=== PATIENT | female | born 1970 | race Caucasian/White ===

== ENCOUNTER 2017-01-26 01:18 | Emergency (ER) | payer SELFPAY | END 2017-01-26 02:05 | disposition left against medical advice (07) | LOC: EMS 01:20 | DX: M79.672 Pain in left foot (principal); M79.671 Pain in right foot; F20.9 Schizophrenia, unspecified; F31.9 Bipolar disorder, unspecified | CPT/HCPCS: 99283 ==

== ENCOUNTER 2017-01-26 02:35 | Inpatient (IN) | payer MEDICAID ==
[~2017-01-26] VITALS: Ht 160 cm; Wt 64.4 kg
[2017-01-26 03:09] LABS: BASOPHILS % (AUTO) 0.3 % (0.0-2.0); EOSINOPHILS % (AUTO) 2.1 % (1.0-6.0); HEMATOCRIT 40.5 % (36-46); HEMOGLOBIN 13.4 g/dL (12.0-16.0); LYMPHOCYTES # (AUTO) 1.6 K/uL (1.0-4.8); LYMPHOCYTES % (AUTO) 13.2 % (22.0-44.0); MEAN CORPUSCULAR VOLUME 91 fL (80-100); MONOCYTES # (AUTO) 0.7 K/uL (0.1-1.0); MONOCYTES % (AUTO) 5.7 % (2.0-9.0); NEUTROPHILS # (AUTO) 9.3 K/uL (1.8-7.7); NEUTROPHILS % (AUTO) 78.7 % (40.0-70.0); PLATELET COUNT (AUTO) 338 K/uL (150-450); RED BLOOD CELL COUNT(AUTO) 4.46 MIL/uL (4.00-5.20); RED CELL DISTRIBUTION WIDTH 13.5 % (11.5-14.5); WHITE BLOOD COUNT (AUTO) 11.8 K/uL (4.5-11.0)
[2017-01-26 03:13] LABS: ANION GAP 9 mmol/L (8-16); CALCIUM, TOTAL 9.2 mg/dL (8.8-10.5); CARBON DIOXIDE 26 mmol/L (22-29); CHLORIDE 102 mmol/L (98-107); CREATININE 0.79 mg/dL (0.60-1.30); GLOMERULAR FILTR. RATE CALC > 60 mL/min (>60); POTASSIUM 3.6 mmol/L (3.5-5.1); SODIUM SERUM 137 mmol/L (136-145); UREA NITROGEN, BLOOD 11 mg/dL (7-18)
[2017-01-26 03:19] LABS: ALANINE AMINOTRANSFERASE 23 U/L (12-78); ALBUMIN 4.2 g/dL (3.4-5.0); ASPARTATE AMINOTRANSFERASE 24 U/L (15-37); BILIRUBIN,TOTAL 0.8 mg/dL (0.1-1.0); TOTAL PROTEIN, SERUM 8.1 g/dL (6.4-8.2)
[2017-01-26] MEDS ORDERED: ZOLPIDEM TARTRATE 10 MG TABLET PO PRN (10:30)
[2017-01-26 12:30] VITALS: BP 143/91
[2017-01-26 13:27] VITALS: BP 133/85
[2017-01-26] MEDS: ACETAMINOPHEN 325 MG TABLET PO PRN (13:29)
[2017-01-26] MEDS: BACITRACIN 28.4 GM OINTMENT TP SCH (16:11)
[2017-01-26 16:15] VITALS: BP 112/72
[2017-01-27 00:10] VITALS: BP 131/69
[2017-01-27] MEDS: ACETAMINOPHEN 325 MG TABLET PO PRN (00:13)
[2017-01-27] MEDS ORDERED: ONDANSETRON HCL 4 MG TABLET PO PRN (07:45)
[2017-01-27] MEDS ORDERED: BACITRACIN 28.4 GM OINTMENT TP PRN (07:45)
[2017-01-27] MEDS ORDERED: MAG HYDROX/AL HYDROX/SIMETH ES 30 ML SUSPENSION UDCUP PO PRN (07:45)
[2017-01-27] MEDS ORDERED: CloNIDine HCL 0.1 MG TABLET PO PRN (07:45)
[2017-01-27] MEDS ORDERED: ACETAMINOPHEN 325 MG TABLET PO PRN (07:45)
[2017-01-27] MEDS ORDERED: ALBUTEROL SULFATE HFA 90 MCG/PUFF 8 GM INHALER IH PRN (07:45)
[2017-01-27] MEDS ORDERED: MAGNESIUM HYDROXIDE SUSPENSION 30 ML UDCUP PO PRN (07:45)
[2017-01-27 08:24] VITALS: BP 122/80
[2017-01-27] MEDS: BACITRACIN 28.4 GM OINTMENT TP SCH ×2 (08:39→17:26)
[2017-01-27] MEDS ORDERED: LORazepam 2 MG/ML VIAL ONE (10:23)
[2017-01-27] MEDS ORDERED: HALOPERIDOL LACTATE 5 MG/ML VIAL ONE (10:24)
[2017-01-27] MEDS ORDERED: DiphenhydrAMINE HCL 50 MG/ML VIAL ONE (10:24)
[2017-01-27] MEDS ORDERED: DiphenhydrAMINE HCL 50 MG/ML VIAL IM ONE (10:30)
[2017-01-27] MEDS ORDERED: LORazepam 2 MG/ML VIAL IM ONE (10:30)
[2017-01-27] MEDS ORDERED: HALOPERIDOL LACTATE 5 MG/ML VIAL IM ONE (10:30)
[2017-01-27] MEDS: MAGNESIUM SULFATE 454 GM BOX TP SCH (12:21)
[2017-01-27] MEDS: TERBINAFINE HCL 1% 30 GM CREAM TP SCH (12:21)
[2017-01-27 16:15] VITALS: BP 98/72
[2017-01-27] MEDS: OLANZapine 5 MG TABLET PO SCH (21:00)
[2017-01-27] MEDS: DIVALPROEX SODIUM 500 MG DR TABLET PO SCH (21:00)
[2017-01-28 00:48] VITALS: BP 99/65
[2017-01-28] MEDS: BENZOCAINE/MENTHOL LOZENGE MM PRN (04:16)
[2017-01-28] MEDS: OLANZapine 5 MG TABLET PO SCH ×2 (08:29→21:00)
[2017-01-28] MEDS: TERBINAFINE HCL 1% 30 GM CREAM TP SCH (08:29)
[2017-01-28] MEDS: BACITRACIN 28.4 GM OINTMENT TP SCH ×2 (08:29→17:00)
[2017-01-28] MEDS: MAGNESIUM SULFATE 454 GM BOX TP SCH (08:29)
[2017-01-28] MEDS: DIVALPROEX SODIUM 500 MG DR TABLET PO SCH ×2 (08:29→21:00)
[2017-01-28 08:31] LABS: HEMOGLOBIN A1C 5.4 % (4.5-6.2)
[2017-01-28 08:38] VITALS: BP 130/62
[2017-01-28 08:38] LABS: CHOL/HDL RATIO 3.3 (3.9-5.7); THYROID STIMULATING HORMONE 1.6 uIU/mL (0.36-3.74)
[2017-01-28 16:24] VITALS: BP 111/76
[2017-01-28] MEDS ORDERED: NICOTINE 14 MG/24 HOUR PATCH TD SCH (19:30)
[2017-01-28 20:35] VITALS: BP 115/74
[2017-01-28] MEDS: IBUPROFEN 600 MG TABLET PO PRN (20:35)
[2017-01-28] MEDS: LORazepam 2 MG TABLET PO PRN (23:47)
[2017-01-28 23:48] VITALS: BP 131/81
[2017-01-29] MEDS: OLANZapine 5 MG TABLET PO SCH ×2 (09:21→21:00)
[2017-01-29] MEDS: DIVALPROEX SODIUM 500 MG DR TABLET PO SCH ×2 (09:21→21:00)
[2017-01-29] MEDS: BACITRACIN 28.4 GM OINTMENT TP SCH ×2 (09:22→17:00)
[2017-01-29] MEDS: MAGNESIUM SULFATE 454 GM BOX TP SCH (09:22)
[2017-01-29] MEDS: NICOTINE 14 MG/24 HOUR PATCH TD SCH (09:55)
[2017-01-29] MEDS: TERBINAFINE HCL 1% 30 GM CREAM TP SCH (10:11)
[2017-01-29 16:07] VITALS: BP 130/80
[2017-01-29] MEDS: BENZOCAINE/MENTHOL LOZENGE MM PRN (16:17)
[2017-01-29] MEDS: LORazepam 2 MG TABLET PO PRN (16:43)
[2017-01-29] MEDS: HALOPERIDOL 5 MG TABLET PO PRN (16:52)
[2017-01-30 08:26] VITALS: BP 114/68
[2017-01-30] MEDS: NICOTINE 14 MG/24 HOUR PATCH TD SCH ×2 (08:58→10:26)
[2017-01-30] MEDS: BACITRACIN 28.4 GM OINTMENT TP SCH ×2 (08:58→16:51)
[2017-01-30] MEDS: DIVALPROEX SODIUM 500 MG DR TABLET PO SCH ×2 (08:58→20:21)
[2017-01-30] MEDS: OLANZapine 5 MG TABLET PO SCH ×2 (08:58→20:21)
[2017-01-30] MEDS: MAGNESIUM SULFATE 454 GM BOX TP SCH (08:59)
[2017-01-30] MEDS: TERBINAFINE HCL 1% 30 GM CREAM TP SCH (08:59)
[2017-01-30] MEDS: LORazepam 2 MG TABLET PO PRN (10:24)
[2017-01-30 16:32] VITALS: BP 107/79
[2017-01-31 00:50] VITALS: BP 115/76
[2017-01-31] MEDS: NICOTINE 14 MG/24 HOUR PATCH TD SCH (08:40)
[2017-01-31 08:43] VITALS: BP 129/64
[2017-01-31] MEDS: DIVALPROEX SODIUM 500 MG DR TABLET PO SCH ×2 (08:45→20:28)
[2017-01-31] MEDS: OLANZapine 5 MG TABLET PO SCH (08:45)
[2017-01-31] MEDS: TERBINAFINE HCL 1% 30 GM CREAM TP SCH (08:47)
[2017-01-31] MEDS: BACITRACIN 28.4 GM OINTMENT TP SCH ×2 (08:47→16:32)
[2017-01-31] MEDS: MAGNESIUM SULFATE 454 GM BOX TP SCH (08:47)
[2017-01-31] MEDS: BENZOCAINE/MENTHOL LOZENGE MM PRN (14:39)
[2017-01-31 16:18] VITALS: BP 110/78
[2017-01-31] MEDS: LORazepam 2 MG TABLET PO PRN (18:45)
[2017-01-31] MEDS: HALOPERIDOL 5 MG TABLET PO PRN (19:12)
[2017-01-31] MEDS: OLANZapine 10 MG TABLET PO SCH (21:00)
[2017-02-01 06:55] VITALS: BP 118/75
[2017-02-01 08:36] VITALS: BP 127/72
[2017-02-01] MEDS: TERBINAFINE HCL 1% 30 GM CREAM TP SCH (09:06)
[2017-02-01] MEDS: BACITRACIN 28.4 GM OINTMENT TP SCH ×2 (09:06→16:44)
[2017-02-01] MEDS: NICOTINE 14 MG/24 HOUR PATCH TD SCH (09:08)
[2017-02-01] MEDS: LORazepam 2 MG TABLET PO PRN (10:57)
[2017-02-01 17:10] VITALS: BP 105/76
[2017-02-01] MEDS: DIVALPROEX SODIUM 500 MG DR TABLET PO SCH (20:36)
[2017-02-01] MEDS: OLANZapine 10 MG TABLET PO SCH (20:36)
[2017-02-02] MEDS: PETROLATUM,WHITE 71 GM JELLY TP PRN (05:24)
[2017-02-02 06:20] VITALS: BP 109/68
[2017-02-02 08:10] LABS: GLUCOSE, URINE (UA) NEGATIVE (NEGATIVE); KETONES,URINE NEGATIVE (NEGATIVE); LEUKOCYTE ESTERASE ,URINE NEGATIVE (NEGATIVE); OCCULT BLOOD,URINE NEGATIVE (NEGATIVE); PROTEIN,URINE NEGATIVE (NEGATIVE)
[2017-02-02 08:12] LABS: ADD UA MICROSCOPIC NO; APPEARANCE,URINE HAZY (CLEAR)
[2017-02-02 08:22] VITALS: BP 100/62
[2017-02-02] MEDS: NICOTINE 14 MG/24 HOUR PATCH TD SCH (08:59)
[2017-02-02] MEDS: BACITRACIN 28.4 GM OINTMENT TP SCH (09:00)
[2017-02-02] MEDS: TERBINAFINE HCL 1% 30 GM CREAM TP SCH (09:00)
[2017-02-02] MEDS: LORazepam 2 MG TABLET PO PRN (11:54)
[2017-02-02 16:38] VITALS: BP 122/74
[2017-02-02] MEDS: DIVALPROEX SODIUM 500 MG DR TABLET PO SCH (21:00)
[2017-02-02] MEDS: OLANZapine 10 MG TABLET PO SCH (21:00)
[2017-02-03] MEDS: LOPERAMIDE HCL 2 MG CAPSULE PO PRN (04:45)
[2017-02-03] MEDS: PETROLATUM,WHITE 71 GM JELLY TP PRN (04:45)
[2017-02-03 05:53] VITALS: BP 103/71
[2017-02-03 08:10] VITALS: BP 129/84
[2017-02-03] MEDS: NICOTINE 14 MG/24 HOUR PATCH TD SCH (08:38)
[2017-02-03] MEDS: TERBINAFINE HCL 1% 30 GM CREAM TP SCH (08:38)
[2017-02-03] MEDS: LORazepam 2 MG TABLET PO PRN ×2 (08:39→20:15)
[2017-02-03 16:10] VITALS: BP 112/70
[2017-02-03] MEDS ORDERED: NYSTATIN 30 GM CREAM TP SCH (17:00)
[2017-02-03] MEDS: DIVALPROEX SODIUM 500 MG DR TABLET PO SCH (20:15)
[2017-02-03] MEDS: OLANZapine 10 MG TABLET PO SCH (20:15)
[2017-02-04 05:05] VITALS: BP 101/68
[2017-02-04] MEDS: TERBINAFINE HCL 1% 30 GM CREAM TP SCH (08:29)
[2017-02-04] MEDS: NICOTINE 14 MG/24 HOUR PATCH TD SCH (08:30)
[2017-02-04 09:03] VITALS: BP 108/74
[2017-02-04] MEDS: ZINC OXIDE TP SCH ×2 (12:48→16:45)
[2017-02-04] MEDS: HYDROCORTISONE 0.5% 30 GM CREAM TP SCH ×2 (12:48→16:45)
[2017-02-04] MEDS: COD LIVER OIL TP SCH ×2 (12:48→16:45)
[2017-02-04 16:28] VITALS: BP 110/72
[2017-02-04] MEDS ORDERED: HALOPERIDOL LACTATE 5 MG/ML VIAL IM PRN (19:15)
[2017-02-04] MEDS: OLANZapine 10 MG TABLET PO SCH (20:28)
[2017-02-04] MEDS: DIVALPROEX SODIUM 500 MG DR TABLET PO SCH (20:28)
[2017-02-04] MEDS: BENZOCAINE/MENTHOL LOZENGE MM PRN (21:06)
[2017-02-04] MEDS: LORazepam 2 MG TABLET PO PRN (21:20)
[2017-02-05 05:25] VITALS: BP 126/71
[2017-02-05] MEDS: LOPERAMIDE HCL 2 MG CAPSULE PO PRN (07:07)
[2017-02-05 08:11] LABS: ADD UA MICROSCOPIC NO; APPEARANCE,URINE CLEAR (CLEAR); GLUCOSE, URINE (UA) NEGATIVE (NEGATIVE); KETONES,URINE NEGATIVE (NEGATIVE); LEUKOCYTE ESTERASE ,URINE NEGATIVE (NEGATIVE); OCCULT BLOOD,URINE NEGATIVE (NEGATIVE); PH,URINE 6.5 (5.0-8.0); PROTEIN,URINE NEGATIVE (NEGATIVE)
[2017-02-05 08:39] VITALS: BP 101/69
[2017-02-05] MEDS: LORazepam 2 MG TABLET PO PRN ×2 (09:47→21:30)
[2017-02-05] MEDS: IBUPROFEN 600 MG TABLET PO PRN (09:47)
[2017-02-05] MEDS: ZINC OXIDE TP SCH ×2 (09:48→16:46)
[2017-02-05] MEDS: HYDROCORTISONE 0.5% 30 GM CREAM TP SCH ×2 (09:48→16:46)
[2017-02-05] MEDS: COD LIVER OIL TP SCH ×2 (09:48→16:46)
[2017-02-05] MEDS: TERBINAFINE HCL 1% 30 GM CREAM TP SCH (09:48)
[2017-02-05 16:41] VITALS: BP 101/65
[2017-02-05 16:45] VITALS: BP 101/65
[2017-02-05] MEDS: OLANZapine 10 MG TABLET PO SCH (20:00)
[2017-02-05] MEDS: DIVALPROEX SODIUM 500 MG DR TABLET PO SCH (20:00)
[2017-02-05 21:20] VITALS: BP 120/70
[2017-02-05] MEDS: NYSTATIN 15 GM POWDER BOTTLE TP SCH (21:27)
[2017-02-06 03:53] VITALS: BP 114/76
[2017-02-06] MEDS: LOPERAMIDE HCL 2 MG CAPSULE PO PRN (05:25)
[2017-02-06 08:12] VITALS: BP 116/73
[2017-02-06] MEDS: ZINC OXIDE TP SCH ×2 (09:59→16:49)
[2017-02-06] MEDS: COD LIVER OIL TP SCH ×2 (09:59→16:49)
[2017-02-06] MEDS: HYDROCORTISONE 0.5% 30 GM CREAM TP SCH ×2 (10:00→16:49)
[2017-02-06] MEDS: TERBINAFINE HCL 1% 30 GM CREAM TP SCH (10:00)
[2017-02-06] MEDS: NYSTATIN 15 GM POWDER BOTTLE TP SCH ×2 (10:00→16:49)
[2017-02-06 16:18] VITALS: BP 102/69
[2017-02-06 16:30] VITALS: BP 118/70
[2017-02-06] MEDS: DIVALPROEX SODIUM 500 MG DR TABLET PO SCH (20:20)
[2017-02-06] MEDS: OLANZapine 10 MG TABLET PO SCH (20:21)
[2017-02-07] MEDS: IBUPROFEN 600 MG TABLET PO PRN (00:17)
[2017-02-07 08:16] VITALS: BP 105/61
[2017-02-07] MEDS: HYDROCORTISONE 0.5% 30 GM CREAM TP SCH ×2 (08:41→16:02)
[2017-02-07] MEDS: TERBINAFINE HCL 1% 30 GM CREAM TP SCH (08:41)
[2017-02-07] MEDS: NYSTATIN 15 GM POWDER BOTTLE TP SCH ×2 (08:41→16:03)
[2017-02-07] MEDS: ZINC OXIDE TP SCH ×2 (08:42→16:02)
[2017-02-07] MEDS: COD LIVER OIL TP SCH ×2 (08:42→16:02)
[2017-02-07 16:00] VITALS: BP 112/75
[2017-02-07] MEDS: DIVALPROEX SODIUM 500 MG DR TABLET PO SCH (20:21)
[2017-02-07] MEDS: OLANZapine 10 MG TABLET PO SCH (20:21)
[2017-02-08] MEDS: TERBINAFINE HCL 1% 30 GM CREAM TP SCH (08:22)
[2017-02-08] MEDS: ZINC OXIDE TP SCH (08:22)
[2017-02-08] MEDS: HYDROCORTISONE 0.5% 30 GM CREAM TP SCH (08:22)
[2017-02-08] MEDS: COD LIVER OIL TP SCH (08:22)
[2017-02-08] MEDS: NYSTATIN 15 GM POWDER BOTTLE TP SCH (08:22)
[2017-02-08 08:56] VITALS: BP 117/75
[2017-02-08] MEDS ORDERED: DIVA500T35 PO (10:07)
[2017-02-08] MEDS ORDERED: OLAN10TA3 PO (10:08)
== END 2017-02-08 13:05 | disposition home or self-care (01) | DRG 753 ==
LOC: EMS 02:36 → B3A 11:12
DX: F31.2 Bipolar disorder, current episode manic severe with psychotic features (principal); Z78.1 Physical restraint status; B35.3 Tinea pedis; F17.200 Nicotine dependence, unspecified, uncomplicated; B37.3 Candidiasis of vulva and vagina; F20.9 Schizophrenia, unspecified; R73.9 Hyperglycemia, unspecified; G47.00 Insomnia, unspecified; M79.672 Pain in left foot; M79.671 Pain in right foot; L84 Corns and callosities; R21 Rash and other nonspecific skin eruption; Z87.76 Personal history of (corrected) congenital malformations of integument, limbs and musculoskeletal system; Z98.890 Other specified postprocedural states; Z90.89 Acquired absence of other organs; Z98.51 Tubal ligation status; Z88.1 Allergy status to other antibiotic agents; Z88.5 Allergy status to narcotic agent; Z88.8 Allergy status to other drugs, medicaments and biological substances; Z59.0 Homelessness; Z71.6 Tobacco abuse counseling; Z71.41 Alcohol abuse counseling and surveillance of alcoholic; Z63.5 Disruption of family by separation and divorce; Z72.89 Other problems related to lifestyle; Z53.29 Procedure and treatment not carried out because of patient's decision for other reasons
CPT/HCPCS: 82306; 83036; 84443; 99285; G0480; J1200; J1630; J2060; Q0162